=== PATIENT | male | born 1995 | race Caucasian/White ===

== ENCOUNTER 2018-07-12 14:41 | Emergency (ER) | payer OTHER ==
[~2018-07-12] VITALS: Ht 167.6 cm; Wt 83.0 kg
[2018-07-12 14:45] VITALS: Ht 167.6 cm; Wt 83.0 kg
[2018-07-12] MEDS ORDERED: SOD CHLORIDE 0.9% 1,000 ML IV STA (15:42)
[2018-07-12] MEDS ORDERED: KETOROLAC 15 MG INJ IV STA (15:42)
[2018-07-12] MEDS ORDERED: ONDANSETRON 4 MG INJ IV STA (15:42)
[2018-07-12] MEDS ORDERED: FENTAnyl 50 MCG/ML VIAL IV ONE (17:00)
[2018-07-12 18:03] VITALS: BP 135/85; PULSE 59; RESP 16
--- NOTE | 2018-07-12 18:48 | ERD ---
ER Documentation Chief Complaint Chief Complaint Complains of flank pain sent from clinic for eval. HPI This is a 22-year-old male with a past medical history of nephrolithiasis who is presenting with waxing and waning Monica colicky aching sharp left-sided flank pain with some difficulty urinating over the last 2-3 days. The patient does not endorse any nausea or vomiting. He does not endorse any nausea or vomiting. He has not noticed any pain with urination. He has not noticed any blood in his urine. The patient does not recall if this is similar to his past episode. He does not endorse any fever or chills. The patient also reports what appeared to be an episode of GI bleeding. The patient reports streaking to his stool this morning. He does not endorse any black or dark stooling. He does not endorse any constipation or diarrhea. The patient was seen at an urgent care this afternoon. He reportedly had a u rinalysis completed, but he does not have the results of this. He was told that he had a kidney stone and that he needed to come to the emergency department. The patient was already given prescriptions for ibuprofen, Flomax and Keflex. The patient has had no headache or vision changes. The patient does not endorse neck or back pain. The patient denies lightheadedness or dizziness. The patient has had no chest pain or trouble breathing. The patient has had no focal deficits. The patient has had no weakness or numbness or tingling to the face or extremities. ROS All systems reviewed and are negative except as per history of present illness. Medications Home Meds No Active Prescriptions or Reported Meds Allergies Allergies: Coded Allergies: No Known Allergy (Unverified , 07/12/18) PMhx/Soc Medical and Surgical Hx: pt denies Surgical Hx History of Surgery: No Anesthesia Reaction: No Hx Neurological Disorder: No Hx Respiratory Disorders: No Hx Cardiac Disorders: No Hx Psychiatric Problems: No Hx Miscellaneous Medical Probl: Yes (Nephrolithiasis) Hx Alcohol Use: Yes Hx Substance Use: Yes Hx Tobacco Use: Yes Smoking Status: Current every day smoker FmHx Family History: No diabetes Physical Exam Vitals Vital Signs Date Temp Pulse Resp B/P (MAP) Pulse Ox O2 O2 Flow FiO2 Time Delivery Rate 07/12/18 99.0 59 16 135/85 99 Room Air 18:03 (102) 07/12/18 60 16 133/88 98 17:40 (103) 07/12/18 98.0 76 20 136/76 99 14:45 (96) Physical Exam Const: No apparent distress, well-developed, well-nourished Head: Normocephalic, Atraumatic Eyes: Normal Conjunctiva. Extraocular movements intact. Pupils equal, round and reactive to light ENT: Normal External Ears, Nose and Mouth. Neck: Full range of motion. No meningismus. Resp: Clear to auscultation bilaterally, No wheezes, rales or rhonchi Cardio: Regular rate and rhythm. No murmurs, rubs or gallops Abd: Soft, non tender, non distended. Normal bowel sounds Skin: No petechiae or rashes Back: No midline tenderness. Left-sided CVA tenderness Ext: No cyanosis, or edema Neur: Awake and alert, oriented 4. Cranial nerves intact. No facial droop. Normal strength, sensation and coordination. Psych: Normal Mood and Affect Result Diagram: 07/12/18 1548 07/12/18 1548 Results 24 hrs Laboratory Tests Test 07/12/18 15:40 07/12/18 15:48 Urine Color YELLOW Urine Clarity CLEAR Urine pH 7.0 Urine Specific [place] 1.015 Urine Ketones NEGATIVE mg/dL Urine Nitrite NEGATIVE mg/dL Urine Bilirubin NEGATIVE mg/dL Urine Urobilinogen NEGATIVE mg/dL Urine Leukocyte Esterase NEGATIVE Nimisha/ul Urine Hemoglobin NEGATIVE mg/dL Urine Glucose NEGATIVE mg/dL Urine Total Protein NEGATIVE mg/dl White Blood Count 7.5 10^3/ul Red Blood Count 5.00 10^6/ul Hemoglobin 15.3 g/dl Hematocrit 46.1 % Mean Corpuscular Volume 92.2 fl Mean Corpuscular Hemoglobin 30.6 pg Mean Corpuscular Hemoglobin Concent 33.2 g/dl Red Cell Distribution Width 12.6 % Platelet Count 258 10^3/UL Mean Platelet Volume 10.6 fl Immature Granulocytes % 0.500 % Neutrophils % 61.2 % Lymphocytes % 24.8 % Monocytes % 10.3 % Eosinophils % 2.4 % Basophils % 0.8 % Nucleated Red Blood Cells % 0.0 /100WBC Immature Granulocytes # 0.040 10^3/ul Neutrophils # 4.6 10^3/ul Lymphocytes # 1.9 10^3/ul Monocytes # 0.8 10^3/ul Eosinophils # 0.2 10^3/ul Basophils # 0.1 10^3/ul Nucleated Red Blood Cells # 0.0 10^3/ul Sodium Level 143 mmol/L Potassium Level 4.1 mmol/L Chloride Level 102 mmol/L Carbon Dioxide Level 27 mmol/L Anion Gap 14 Blood Urea Nitrogen 14 mg/dl Creatinine 1.05 mg/dl Est Glomerular Filtrat Rate mL/min > 60 mL/min Glucose Level 93 mg/dl Calcium Level 9.5 mg/dl Total Bilirubin 0.6 mg/dl Direct Bilirubin 0.00 mg/dl Indirect Bilirubin 0.6 mg/dl Aspartate Amino Transf (AST/SGOT) 25 IU/L Alanine Aminotransferase (ALT/SGPT) 20 IU/L Alkaline Phosphatase 65 IU/L Total Protein 7.7 g/dl Albumin 4.6 g/dl Globulin 3.10 g/dl Albumin/Globulin Ratio 1.48 Lipase 98 U/L Current Medications Medications Dose Sig/Ashley Start Time Status Last (Trade) Ordered Route PRN Stop Time Admin Dose Reason Admin Sodium 1,000 ml @ Q1H STAT 07/12/18 DC 07/12/18 Chloride 1,000 mls/hr IV 15:42 15:59 07/12/18 16:41 Ondansetron 4 mg ONCE STAT 07/12/18 DC 07/12/18 HCl (Zofran IV 15:42 15:58 Inj) 07/12/18 15:43 Ketorolac 15 mg ONCE STAT 07/12/18 DC 07/12/18 Tromethamine IV 15:42 15:59 (Toradol) 07/12/18 15:43 Fentanyl 50 mcg ONCE ONCE 07/12/18 DC 07/12/18 (Sublimaze) IV 17:00 17:18 07/12/18 17:03 Procedures/MDM MDM The patient's presentation warrants further investigation. Previous medical records, if available, were reviewed. LABS The patient's laboratory testing was obtained and reviewed. No emergent treatment was required unless described below. CBC: No E/o of systemic infection or severe anemia or thrombocytopenia CMP: No E/o severe acidosis or alkalosis or renal failure or liver disease or diabetic ketoacidosis Lipase: No E/o pancreatitis Urine: No E/o acute infection or hematuria IMAGING Imaging and Radiology interpretation reviewed. CT abdomen pelvis FINDINGS: The lung bases are clear of any infiltrate or nodule. No effusion is seen. The liver is of normal size, contour and attenuation with no mass or ductal dilatation. No gallstones are visualized. No splenic, adrenal or pancreatic abnormalities present. Kidneys are of normal size and contour. No hydronephrosis or solid masses seen. There is a 3 mm nonobstructing stone in the upper pole of the right kidney. Noted is a 2.5 cm cortical cyst of the left kidney. Ureters are of normal course and caliber with no stone. No bladder mass or stone is present. Prostate and seminal vesicles are normal. There is no aneurysm. No adenopathy is present. There are multiple left periaortic nodes measuring up to 5 mm in diameter. No bowel mass or obstruction is present. The appendix is not confidently visualized.. No phlegmon, ascites or pneumoperitoneum is visualized. The osseous structures are intact. IMPRESSION: No evidence of obstructive uropathy or diverticulitis. Nonvisualization appendix. 3 mm nonobstructing right renal calculus. Left renal cyst. Electronically viewed and signed by .Sukhi Mcconnell MD, on 07/12/2018 17:29 TREATMENT/DISPOSITION The patient presents with left-sided flank pain. The patient's urinalysis is unremarkable and he does not appear to have evidence of obstructive uropathy. He does have a 3 mm stone in the upper pole of the right kidney, but there is no evidence of left-sided kidney stones. There are no concerning inflammatory or infectious changes. While the appendix was not visualized, the patient does not have right-sided pain. I have low suspicion for appendicitis. There is no evidence of diverticulosis or diverticulitis. The patient does not have any evidence of peritonitis. The patient does not have clinical symptoms concerning for mesenteric ischemia or ischemic colitis. The patient does not have right upper quadrant tenderness, and I have low suspicion for gallstones, cholecystiti s or biliary colic. The patient does not have any epigastric pain. I have low suspicion for gastritis, PUD or GERD. The patient does not have left upper quadrant tenderness. The patient's lipase is negative. I have low suspicion for pancreatitis. The patient does not have any right lower quadrant tenderness, or periumbilical tenderness. I have low suspicion for appendicitis. The patient does not have suprapubic tenderness. The patient's urinalysis is negative. I have decreased suspicion for cystitis. The patient does not have any palpable pulsatile mass or severe abdominal pain radiating to the back. I have low suspicion for aortic aneurysm, dissection or rupture. The patient does not recall a trauma or injury to the left flank. On reevaluation, the patient's pain is potentially musculoskeletal in etiology. The patient was treated with IV fluids, Zofran, Toradol and a dose of fentanyl with some improvement of his pain. Upon reevaluation of the patient, symptoms have improved. No emergent diagnoses were identified. At this time, I feel that the patient stable for discharge. The patient was instructed to follow-up with a primary care physician in 1-3 days. The patient will be given strict precautions with which to return to the emergency department. Prescriptions: Oxycodone and Flexeril. The patient's [employer] database was accessed. He was given a prescription for Flexeril in December 2017. He no longer has this medicine. That said, Flexeril and oxycodone are both sedating. I will provide the patient with a prescription for Narcan as well. The patient's blood pressure was elevated at greater than 120/80 while in the emergency department. The patient was otherwise stable with no evidence of hypertensive urgency or emergency. The patient does not require admission for blood pressure control. I have discussed with the patient the risks of hypertension. I have instructed the patient to return to the ER for any new or worsening symptoms including chest pain, shortness of breath, headache, blurred vision, confusion, nausea, vomiting or LOC. I have advised the patient to follow up with the primary care physician for outpatient monitoring and treatment for hypertension in 1-3 days. Disclaimer: Inadvertent spelling and grammatical errors are likely due to EHR/dictation software use and do not reflect on the overall quality of patient care. Note that the electronic time recorded on this note does not necessarily reflect the actual time of the patient encounter. Departure Diagnosis: Primary Impression: Left flank pain Additional Impression: Right nephrolithiasis Condition: Stable ERASMO AKHTAR MD Jul 12, 2018 18:47
[2018-07-12] MEDS ORDERED: OXYC5CAP17 PO (18:50)
[2018-07-12] MEDS ORDERED: NALO4SPR NS (18:50)
== END 2018-07-12 18:04 | disposition home or self-care (01) ==
LOC: E/R 14:41
DX: N20.0 Calculus of kidney (principal); F17.210 Nicotine dependence, cigarettes, uncomplicated
CPT/HCPCS: 36415; 74176; 80053; 81003; 83690; 85025; 96374; 96375; 99285; J1885; J3010; J7030

== ENCOUNTER → 2018-12-25 | Emergency (ER) | payer SELFPAY ==
[~2018-12-25] VITALS: Ht 185.4 cm; Wt 85.1 kg
[~2018-12-25] MED LIST: NALO4SPR NS; OXYC5CAP17 PO
[2018-12-25 22:49] VITALS: BP 148/74; PULSE 73; RESP 18; Ht 185.4 cm; Wt 85.1 kg
== END | disposition left against medical advice (07) ==
LOC: FTE 22:44
DX: Z53.21 Procedure and treatment not carried out due to patient leaving prior to being seen by health care provider (principal)